=== PATIENT | female | born 1985 | race African-American/Black ===

== ENCOUNTER 2022-01-28 10:46 | Emergency (ER) | payer OTHER ==
[2022-01-28 11:42] LABS: BILIRUBIN,URINE NEGATIVE (NEGATIVE); GLUCOSE, URINE (UA) NEGATIVE (NEGATIVE); KETONES,URINE (UA) NEGATIVE (NEGATIVE); LEUKOCYTE ESTERASE, URINE NEGATIVE (NEGATIVE); NITRITE,URINE NEGATIVE (NEGATIVE); OCCULT BLOOD,URINE TRACE-INTA (NEGATIVE); PROTEIN,URINE NEGATIVE (NEGATIVE); UROBILINOGEN,URINE 0.2 (NORMAL) E.U./dL (NORMAL)
[2022-01-28 11:44] LABS: CLARITY,URINE CLEAR (CLEAR); HCG UR QUAL NEGATIVE
[2022-01-28 11:49] LABS: BASOPHILS % (AUTO) 0.7 %; EOSINOPHILS # (AUTO) 0.1 10^3/uL (0.0-0.7); EOSINOPHILS % (AUTO) 2.3 %; HCT - HEMATOCRIT 41.5 % (37.0-47.0); LYMPHOCYTES # (AUTO) 1.9 10^3/uL (1.5-3.5); LYMPHOCYTES % (AUTO) 33.2 %; MEAN CORPUSCULAR HEMOGLOBIN 28.4 pg (27.0-31.0); MEAN CORPUSCULAR HGB CONC 31.3 g/dL (32.0-36.0); MEAN CORPUSCULAR VOLUME 90.8 fL (81.0-99.0); MEAN PLATELET VOLUME 10.1 fL (7.9-10.8); MONOCYTES # (AUTO) 0.4 10^3/uL (0.0-1.0); NEUTROPHILS # (AUTO) 3.2 10^3/uL (1.5-6.6); NEUTROPHILS % (AUTO) 56.5 %; PLT - PLATELET COUNT 273 10^3/uL (130-450); RED BLOOD COUNT 4.57 10^6/uL (4.20-5.40); RED CELL DISTRIBUTION WIDTH 12.7 % (12.0-15.0); WHITE BLOOD COUNT 5.7 x10^3/uL (4.8-10.8)
[2022-01-28] MEDS ORDERED: ONDANSETRON ODT 4 MG TABLET TL STA (12:00)
[2022-01-28] MEDS ORDERED: KETOROLAC 60 MG/2 ML VIAL IM STA (12:00)
[2022-01-28] MEDS ORDERED: oxyCODONE 5 MG TABLET PO STA (12:00)
[2022-01-28 12:02] LABS: ALBUMIN 4.2 g/dL (3.2-5.5); BILIRUBIN,TOTAL 0.4 mg/dL (0.2-1.0); CREATININE 0.7 mg/dL (0.4-1.0); TOTAL PROTEIN 8.4 g/dL (6.7-8.2)
[2022-01-28 12:12] LABS: CALCIUM 9.6 mg/dL (8.5-10.3); POTASSIUM 3.3 mmol/L (3.5-5.0)
--- NOTE | 2022-01-28 12:21 | ED Physician Documentation ---
History of Present Illness - Stated complaint Stated Complaint: ABD PX - Chief complaint Chief Complaint: Abd Pain - History obtained from History obtained from: Patient - History of Present Illness Pain level max: 8 Pain level now: 8 - Additonal information Additional information: Patient is a 36-year-old female who presents to the emergency department with lower abdominal pain, left greater than right. She states that she has a history of ovarian cyst. She states she went to the [place] [facility] today and was sent here for further evaluation. She has not taken anything for pain. The pain has become worse today. Has been ongoing for the past few weeks. No vomiting, diarrhea, vaginal bleeding or discharge. No fevers. No chills. Denies any possibility of . Review of Systems Constitutional: denies: Fever, Chills Cardiac: denies: Chest pain / pressure Respiratory: denies: Dyspnea, Cough GI: reports: Nausea. denies: Diarrhea, Bloody / black stool : denies: Dysuria, Frequency, Hesitancy, Now EGA Skin: denies: Rash Musculoskeletal: denies: Neck pain, Back pain Neurologic: denies: Headache PD PAST MEDICAL HISTORY - Past Medical History Past Medical History: Yes HOME HEALTH AID: Ovarian cysts - Present Medications Home Medications: Ambulatory Orders Medication Instructions Recorded Confirmed Ibuprofen [Motrin] 800 mg PO Q8H PRN #30 tablet 01/28/22 Ondansetron Odt [Zofran] 4 mg TL Q6H PRN #10 tablet 01/28/22 Oxycodone HCl/Acetaminophen 1 - 2 each PO Q6H PRN #14 tablet 01/28/22 [Percocet 5-325 mg Tablet] - Allergies Allergies/Adverse Reactions: Allergies Allergy/AdvReac Type Severity Reaction Status Date / Time No Known Drug Allergies Allergy Verified 01/28/22 11:04 - Living Situation Living Arrangement: reports: At home - Social History Does the pt have substance abuse?: No PD ED PE NORMAL - Vitals Vital signs reviewed: Yes - General General: Alert and oriented X 3, No acute distress, Well developed/nourished - HEENT HEENT: PERRL, Moist mucous membranes - Neck Neck: Supple, no meningeal sign - Cardiac Cardiac: RRR, Strong equal pulses - Respiratory Respiratory: No respiratory distress, Clear bilaterally - Abdomen Abdomen: Normal bowel sounds, Soft, Non distended, Other (Tender palpation left lower quadrant/left pelvic. No peritoneal signs.) - Back Back: No CVA TTP - Derm Derm: Warm and dry - Extremities Extremities: No edema - Neuro Neuro: Alert and oriented X 3 - Psych Psych: Normal mood, Normal affect Results - Vitals Vitals: Vital Signs - 24 hr 01/28/22 01/28/22 11:01 13:04 Temperature 36.4 C L 36.8 C Heart Rate 63 70 Respiratory 16 16 Rate Blood Pressure 135/94 H 140/88 H O2 Saturation 99 98 Oxygen O2 Source Room air - Labs Labs: Laboratory Tests 01/28/22 01/28/22 01/28/22 11:30 11:44 11:44 WBC 5.7 RBC 4.57 Hgb 13.0 Hct 41.5 MCV 90.8 MCH 28.4 MCHC 31.3 L RDW 12.7 Plt Count 273 MPV 10.1 Neut # (Auto) 3.2 Lymph # (Auto) 1.9 [place] # (Auto) 0.4 Eos # (Auto) 0.1 Baso # (Auto) 0.0 Absolute Nucleated RBC 0.00 Nucleated RBC % 0.0 Sodium 134 L Potassium 3.3 L Chloride 100 L Carbon Dioxide 24 Anion Gap 10.0 BUN 12 Creatinine 0.7 Estimated GFR (MDRD) 115 Glucose 79 Calcium 9.6 Total Bilirubin 0.4 AST 26 ALT 22 Alkaline Phosphatase 65 Total Protein 8.4 H Albumin 4.2 Globulin 4.2 Albumin/Globulin Ratio 1.0 Lipase 33 Urine Color YELLOW Urine Clarity CLEAR Urine pH 6.0 Ur Specific [place] 1.025 Urine Protein NEGATIVE Urine Glucose (UA) NEGATIVE Urine Ketones NEGATIVE Urine Occult Blood TRACE-INTA Urine Nitrite NEGATIVE Urine Bilirubin NEGATIVE Urine Urobilinogen 0.2 (NORMAL) Ur Leukocyte Esterase NEGATIVE Ur Microscopic Review NOT INDICATED Urine Culture Comments NOT INDICATED Urine HCG, Qual NEGATIVE - Rads (name of study) OB US Radiology: Final report received, EMP read contemporaneously, See rad report PD MEDICAL DECISION MAKING - ED course Complexity details: reviewed results, re-evaluated patient, considered differential, d/w patient ED course: 36-year-old female with a left ovarian cyst. Has a complex focus with calcification in septations of the left ovary. Unclear if this represents a dermoid cyst? Her pain is well controlled here. We will have her follow-up with her doctor for further care. Abdomen is soft, nontender nondistended on serial exam. No significant lab abnormalities. No evidence of torsion. Patie nt counseled regarding signs and symptoms for which I believe and urgent re- evaluation would be necessary. Patient with good understanding of and agreement to plan and is comfortable going home at this time This document was made in part using voice recognition software. While efforts are made to proofread this document, sound alike and grammatical errors may occur. IMPRESSION: Complex focus with calcification septations in the left ovary. This could represent inferior moiety and no prior exams are available for comparison. Recommend 3 month interval ultrasound follow-up. Departure - Departure Disposition: Home, Self Care Clinical Impression: Ovarian cyst Qualifiers: Laterality: left Qualified Code(s): N83.202 - Unspecified ovarian cyst, left side Condition: Good Instructions: ED Cyst Ovarian Follow-Up: RICHARD GONZALES DO [Primary Care Provider] - Within 1 week Prescriptions: Ibuprofen [Motrin] 800 mg PO Q8H PRN #30 tablet PRN Reason: PAIN &/OR FEVER Oxycodone HCl/Acetaminophen [Percocet 5-325 mg Tablet] 1 - 2 each PO Q6H PRN #14 tablet PRN Reason: pain Ondansetron Odt [Zofran] 4 mg TL Q6H PRN #10 tablet PRN Reason: Nausea / Vomiting Comments: Please follow-up with your doctor for further care. Return if you worsen. It is recommend that he have a repeat ultrasound in 3 months. Please follow-up with your doctor within the next week. Your prescriptions were sent to [facility] FINDINGS: No pathologic free abdominal or pelvic fluid. Uterus: Uterus is normal in size at 8.5 x 4.1 x 4.0 cm. The endometrium measures 5.9 mm in combined thickness. Uterus is heterogeneous. In the mid anterior subserosal region there is a 1.0 x 0.9 x 0.8 cm focus of heterogeneous echogenicity. Similar focus in the right anterior intramural location is present measuring 1.2 x 1.0 x 1.2 cm. Ovaries: Right ovary measures 3.2 x 1.5 x 2.3 cm, volume 5.7 cc. Left ovary measures 2.8 x 1.9 x 3.3 cm, volume 9.1 cc. There is a mass within the left ovary demonstrating areas of apparent calcification measuring 1.6 x 1.1 x 1.7 cm. Normal appearing arterial and venous waveforms are confirmed to each ovary.] Other: Minimal free fluid is noted within the region of the left adnexa. IMPRESSION: Complex focus with calcification septations in the left ovary. This could represent inferior moiety and no prior exams are available for comparison. Recommend 3 month interval ultrasound follow-up. Discharge Date/Time: 01/28/22 13:56
[2022-01-28 13:30] VITALS: BP 140/88
--- NOTE | 2022-01-28 13:33 | Ultrasound Report ---
PROCEDURE: Pelvic w/Transvag+Doppler Comp INDICATIONS: pelvic pain, L TECHNIQUE: Real-time scanning was performed of the pelvic organs, with image documentation. Additional endovagi nal scanning was necessary due to incomplete visualization of the adnexal and endometrial structures by transabdominal scanning. Doppler interrogation was performed of the ovaries bilaterally. COMPARISON: None. FINDINGS: No pathologic free abdominal or pelvic fluid. Uterus: Uterus is normal in size at 8.5 x 4.1 x 4.0 cm. The endometrium measures 5.9 mm in combined thickness. Uterus is heterogeneous. In the mid anterior subserosal region there is a 1.0 x 0.9 x 0.8 cm focus of heterogeneous echogenicity. Similar focus in the right anterior intramural location is p resent measuring 1.2 x 1.0 x 1.2 cm. Ovaries: Right ovary measures 3.2 x 1.5 x 2.3 cm, volume 5.7 cc. Left ovary measures 2.8 x 1.9 x 3.3 cm, volume 9.1 cc. There is a mass within the left ovary demonstrating areas of apparent calcificati on measuring 1.6 x 1.1 x 1.7 cm. Normal appearing arterial and venous waveforms are confirmed to each ovary.] Other: Minimal free fluid is noted within the region of the left adnexa. IMPRESSION: Complex focus with calcification septations in the left ovary. This could represent infe rior moiety and no prior exams are available for comparison. Recommend 3 month interval ultrasound fo llow-up. Reviewed by: Alicia Artis MD on 01/28/2022 1:32 PM PDT Approved by: Alicia Artis MD on 01/28/2022 1:32 PM PDT Station ID: [id number]
== END 2022-01-28 13:56 | disposition home or self-care (01) ==
LOC: ED 10:46
DX: N83.202 Unspecified ovarian cyst, left side (principal)
CPT/HCPCS: 36415; 76830; 76856; 80053; 81003; 81025; 83690; 85025; 93975; 96372; 99284; A9270; Q0162; 81001; 87086

== ENCOUNTER 2023-04-01 06:37 | Emergency (ER) | payer OTHER ==
[2023-04-01 07:04] VITALS: O2SAT 100
--- NOTE | 2023-04-01 07:37 | ED Physician Documentation ---
PD HPI URI - Stated complaint Stated Complaint: COUGH/SOA - Chief complaint Chief Complaint: General - History obtained from History obtained from: Patient - History of Present Illness Timing - onset: How many days ago (3-4) Timing duration: Days (3-4) Timing details: Gradual onset, Still present (initially milder cough and malaise, but has gotten significantly worse with increased cough, body aches, headache, nausea since yesterday. Increased cough with barking/hoarse component.) Associated symptoms: Fever, Chills, Sore throat, Productive cough, Hemoptysis (traces of red) Contributing factors: Travel (went to [place] to visit family for holiday. No one sick there. Flew back several days ago. Had had some cough prior but notable fevers/aches/cough for the past 2-3 days.), COPD / asthma Review of Systems Constitutional: reports: Fever, Chills, Myalgias, Fatigue Ears: denies: Ear pain Nose: reports: Congestion Throat: reports: Sore throat Cardiac: denies: Chest pain / pressure, Palpitations, Pedal edema Respiratory: reports: Cough, Hemoptysis (wisps of blood with cough) GI: reports: Nausea. 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 - Present Medications Home Medications: Ambulatory Orders Medication Instructions Recorded Confirmed Albuterol Sulf [Ventolin Hfa 2 - 3 puffs INH QID #1 each 04/01/23 Inhaler] Amoxicillin 500 mg PO TID #15 cap 04/01/23 HYDROcod/ACETAM 5/325 [[place] 5/325] 1 ea PO Q6H PRN #12 tablet 04/01/23 Ondansetron Odt [Zofran] 4 mg TL Q6H PRN #10 tablet 04/01/23 dexAMETHasone [Decadron] 4 mg PO DAILY #5 tablet 04/01/23 - Allergies Allergies/Adverse Reactions: Allergies Allergy/AdvReac Type Severity Reaction Status Date / Time No Known Drug Allergies Allergy Verified 04/01/23 07:04 - Social History Does the pt smoke?: No Smoking Status: Never smoker Does the pt have substance abuse?: No PD ED PE NORMAL - Vitals Vital signs reviewed: Yes - General General: Alert and oriented X 3, Well developed/nourished, Other (appears uncomfortable lying in bed. Intermittent hoarse/barking type cough with spasmodic pattern. ) - HEENT HEENT: Moist mucous membranes, Pharynx benign - Neck Neck: Supple, no meningeal sign, No adenopathy - Cardiac Cardiac: No murmur. No: RRR (tachycardic but regular with some improvement in rate while here. ) - Respiratory Respiratory: No: Clear bilaterally (wheezing componenent on exxhalation and with coughing. Haorse component as well. ) - Abdomen Abdomen: Soft, Non tender Results - Vitals Vitals: Vital Signs - 24 hr 04/01/23 04/01/23 04/01/23 07:01 07:33 08:10 Temperature 37.7 C 38.6 C H Heart Rate 120 H 110 H Respiratory 24 22 Rate Blood Pressure 147/108 H O2 Saturation 100 04/01/23 04/01/23 04/01/23 08:37 09:04 09:23 Temperature 100.2 C H 37.9 C Heart Rate 121 H 110 H Respiratory 18 Rate Blood Pressure 136/92 H O2 Saturation 100 Oxygen O2 Source Room air - Labs Labs: Laboratory Tests 04/01/23 07:21 Nasal Adenovirus (PCR) NOT DETECTED Nasal B. parapertussis DNA (PCR) NOT DETECTED Nasal Coronavir 229E PCR NOT DETECTED Nasal Coronavir HKU1 PCR NOT DETECTED Nasal Coronavir NL63 PCR NOT DETECTED Nasal Coronavir OC43 PCR NOT DETECTED Nasal Enterovir/Rhinovir PCR NOT DETECTED Nasal Influ A H1 2009 PCR DETECTED A Nasal Influenza B PCR NOT DETECTED Nasal Parainfluen 1 PCR NOT DETECTED Nasal Parainfluen 2 PCR NOT DETECTED Nasal Parainfluen 3 PCR NOT DETECTED Nasal Parainfluen 4 PCR NOT DETECTED Nasal RSV (PCR) NOT DETECTED Nasal B.pertussis DNA PCR NOT DETECTED Nasal C.pneumoniae (PCR) NOT DETECTED Jered Human Metapneumo PCR NOT DETECTED Nasal M.pneumoniae (PCR) NOT DETECTED Nasal SARS-CoV-2 (PCR) NOT DETECTED - Rads (name of study) chest xray Relevant Findings:: Prelim report reviewed, EMP independent interpretation of test (rigth perihilar infiltrate. Consider viral possible. ) PD Medical Decision Making - ED course Complexity details: reviewed results (CXR with some small infiltrates. Had had some URI symptoms prior but with flu like symptoms added now. Consider developing focal pneumonia with also Influenza new. ), considered differential (flu like symptoms for couple days with worse cough and symptoms. Guerin sbarking component to her cough here. ), d/w patient Reviewed Lab Results: viral testing positive for Influenza A. Departure - Departure Disposition: 01 Home, Self Care Clinical Impression: Pulmonary infiltrates on CXR, Influenza A virus subtype H1 2009 pandemic strain present Condition: Stable Record reviewed to determine appropriate education?: Yes Instructions: ED Flu Follow-Up: RICHARD GONZALES DO [Primary Care Provider] - Prescriptions: Amoxicillin 500 mg PO TID #15 cap dexAMETHasone [Decadron] 4 mg PO DAILY #5 tablet HYDROcod/ACETAM 5/325 [[place] 5/325] 1 ea PO Q6H PRN #12 tablet PRN Reason: Pain Albuterol Sulf [Ventolin Hfa Inhaler] 2 - 3 puffs INH QID #1 each Ondansetron Odt [Zofran] 4 mg TL Q6H PRN #10 tablet PRN Reason: Nausea / Vomiting Comments: Your viral panel testing is positive for influenza A. The flu can account for your symptoms with the fevers and body aches and headache as well as cough. It would tend to be about a weeks worth of symptom duration. He can then have some degree of fatigue and coughing for a few weeks after as well. Off duty for the next several days while you are ill. Stay well-hydrated as best you can. Food as tolerated. Will try to help the symptoms of it with albuterol inhaler 2 to 3 puffs 4 times daily to help with breathing wheezing and cough. Decadron steroid anti- inflammatory to help with bronchial inflammation so less coughing and breathing easier. This can help with the body aches as well. Tylenol 500 to 650 mg every 4-6 hours if needed for fevers or pains. I also prescribed hydrocodone/acetaminophen to help with worse body aches and can also be a stronger cough suppressant. Take it with food. Your chest x-ray did show some small patchiness suggesting pneumonia. This likely is still of the influenza pneumonia down in the lungs but there would be concern for potential bacterial component as well so amoxicillin antibiotic 3 times daily for 5 days. I sent your prescriptions to your preferred pharmacy. Recheck if worsening symptoms over the next couple of days and in particular worse pains, headache, repetitive vomiting or worse trouble breathing. I am prescribing a short course of narcotic pain medication for you. These are potentially dangerous and addictive medications that should be used carefully. These medications may constipate you. Take an yctz-[id number] stool softener such as docusate twice daily with plenty of water while taking these medications. If you go 24 hours without a bowel movement, take [id number] MiraLAX, per package instructions. Do not drink or drive while taking these medications. If you received narcotic or sedating medications while in the emergency department do not drive for 24 hours. Store this medication in a safe, secure place and out of reach of children. It is a violation of federal law to give or sell this medication to another person or to use in a manner other than prescribed. The ED will not refill narcotic prescriptions, including prescriptions lost or stolen. You can dispose of unwanted medications at the [facility]'s office or at several pharmacies such as [facility]. Forms: PCP List, Activity restrictions Discharge Date/Time: 04/01/23 09:23
[2023-04-01] MEDS ORDERED: ACETAMINOPHEN 500 MG TABLET PO STA (07:38)
[2023-04-01] MEDS ORDERED: ONDANSETRON ODT 4 MG TABLET TL STA (07:54)
[2023-04-01] MEDS ORDERED: dexAMETHasone 4 MG TABLET PO STA ×2 (07:54→09:12)
[2023-04-01] MEDS ORDERED: ALBUTEROL 1 PUFF INH STA (07:55)
--- NOTE | 2023-04-01 08:01 | XRAY Report ---
PROCEDURE: Chest 1V INDICATIONS: cough/sob TECHNIQUE: One view of the chest was acquired. COMPARISON: None. FINDINGS: Surgical changes and devices: None. Lungs and pleura: No pleural effusions or pneumothorax. Question mild right perihilar interstitial o pacities suggesting possible viral pneumonitis. Mediastinum: Mediastinal contours appear normal. Heart size is normal. Bones and chest wall: No suspicious bony lesions. Overlying soft tissues appear unremarkable. IMPRESSION: Possible viral pneumonitis, right perihilar region. Findings are concordant with preliminary interpretation provided by [facility]. Reviewed by: Edil Fox MD on 04/01/2023 8:00 AM PST Approved by: Edil Fox MD on 04/01/2023 8:00 AM PST Station ID: [id number]
[2023-04-01 08:19] LABS: B. PARAPERTUSSIS- RESP PCR PAN NOT DETECTED; B. PERTUSSIS- RESP PCR PANEL NOT DETECTED; C. PNEUMONIAE- RESP PCR PANEL NOT DETECTED; CORONAVIRUS 229E-RESP PCR NOT DETECTED; CORONAVIRUS HKU1-RESP PCR NOT DETECTED; CORONAVIRUS NL63-RESP PCR NOT DETECTED; CORONAVIRUS OC43-RESP PCR NOT DETECTED; HUMAN METAPNEUMOVIRUS NOT DETECTED; INFLUENZA A H1 2009- RESP PCR DETECTED; INFLUENZA B - RESP PCR PANEL NOT DETECTED; M. PNEUMONIAE- RESP PCR PANEL NOT DETECTED; PARAINFLUENZA VIRUS 1 NOT DETECTED; PARAINFLUENZA VIRUS 2 NOT DETECTED; PARAINFLUENZA VIRUS 3 NOT DETECTED; PARAINFLUENZA VIRUS 4 NOT DETECTED; RHINOVIRUS/ENTEROVIRUS NOT DETECTED; RSV- RESP PCR PANEL NOT DETECTED; SARS-CoV-2 -RESP PCR PANEL NOT DETECTED
[2023-04-01 09:13] VITALS: BP 136/92
== END 2023-04-01 09:23 | disposition home or self-care (01) ==
LOC: ED 06:37
DX: J10.1 Influenza due to other identified influenza virus with other respiratory manifestations (principal); R91.8 Other nonspecific abnormal finding of lung field; Z11.52 Encounter for screening for COVID-19
CPT/HCPCS: 71045; 87633; 94640; 99284; A9270; J8540; Q0162

== ENCOUNTER 2023-04-02 08:34 | Emergency (ER) | payer OTHER ==
[2023-04-02 09:02] LABS: BILIRUBIN,URINE NEGATIVE (NEGATIVE); GLUCOSE, URINE (UA) NEGATIVE (NEGATIVE); KETONES,URINE (UA) NEGATIVE (NEGATIVE); LEUKOCYTE ESTERASE, URINE NEGATIVE (NEGATIVE); NITRITE,URINE NEGATIVE (NEGATIVE); OCCULT BLOOD,URINE TRACE-INTA (NEGATIVE); PROTEIN,URINE 30 mg/dL (NEGATIVE); UROBILINOGEN,URINE 1 (NORMAL) E.U./dL (NORMAL)
[2023-04-02 09:03] LABS: CLARITY,URINE SL. CLOUDY (CLEAR); HCG UR QUAL NEGATIVE
--- NOTE | 2023-04-02 09:09 | ED Physician Documentation ---
History of Present Illness - Stated complaint Stated Complaint: STOMACH CRAMPS/HEAD PX - Chief complaint Chief Complaint: Abd Pain - History obtained from History obtained from: Patient - History of Present Illness Timing: Last night - Additonal information Additional information: Krupa Mcclellan is a 37-year-old female who is seen in emergency department yesterday and diagnosed with influenza A she did have some slight right perihilar findings on her chest x-ray and she was placed on some amoxicillin. She has since developed some pain in the left lower quadrant of her abdomen which had her curled in the position for 2 hours last night. She has persistence of tenderness in the left lower quadrant and she has had diverticulitis previously. She states that this morning she tried to have a bowel movement with only minimal results. She is here for reevaluation. She has had similar pains in her left lower quadrant after starting amoxicillin when she was diagnosed with diverticulitis previously Review of Systems Constitutional: denies: Fever Nose: reports: Congestion Cardiac: denies: Chest pain / pressure Respiratory: reports: Cough. 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 : None Psych: Depression, Anxiety Musculoskeletal: None Derm: None - Past Surgical History Past Surgical History: Yes /UNIT OPERATOR: Breast reduction - Present Medications Home Medications: Ambulatory Orders Medication Instructions Recorded Confirmed Albuterol Sulf [Ventolin Hfa 2 - 3 puffs INH QID #1 each 04/01/23 04/02/23 Inhaler] Amoxicillin 500 mg PO TID #15 cap 04/01/23 04/02/23 HYDROcod/ACETAM 5/325 [[place] 5/325] 1 ea PO Q6H PRN #12 tablet 04/01/23 04/02/23 Ondansetron Odt [Zofran] 4 mg TL Q6H PRN #10 tablet 04/01/23 04/02/23 dexAMETHasone [Decadron] 4 mg PO DAILY #5 tablet 04/01/23 04/02/23 levoFLOXacin [Levaquin] 500 mg PO DAILY #7 tablet 04/02/23 - Allergies Allergies/Adverse Reactions: Allergies Allergy/AdvReac Type Severity Reaction Status Date / Time hydrocodone AdvReac Headache Verified 04/02/23 09:36 - Social History Does the pt smoke?: No Smoking Status: Current some day smoker Does the pt drink ETOH?: Yes Does the pt have substance abuse?: No - Immunizations Immunizations are current?: Yes PD ED PE NORMAL - Vitals Vital signs reviewed: Yes (hypertensive ) - General General: Alert and oriented X 3, No acute distress, Well developed/nourished - HEENT HEENT: Atraumatic, PERRL, EOMI - Neck Neck: Supple, no meningeal sign, No bony TTP - Cardiac Cardiac: RRR, No murmur - Respiratory Respiratory: No respiratory distress, Clear bilaterally - Abdomen Abdomen: Normal bowel sounds, Soft, Non distended, No organomegaly, Other (LLQ tenderness to palpation no referred tenderness) - Back Back: No CVA TTP, No spinal TTP - Derm Derm: Normal color, Warm and dry, No rash - Extremities Extremities: No deformity, No edema - Neuro Neuro: Alert and oriented X 3, head sawyer automatic 2-12 intact, No motor deficit, No sensory deficit, Normal speech Eye Opening: Spontaneous Motor: Obeys Commands Verbal: Oriented GCS Score: 15 - Psych Psych: Normal mood, Normal affect Results - Vitals Vitals: Vital Signs - 24 hr 04/02/23 04/02/23 04/02/23 08:43 09:36 11:30 Temperature 36.9 C 36.8 C Heart Rate 82 68 78 Respiratory 18 16 12 Rate Blood Pressure 131/85 H 132/90 H 136/88 H O2 Saturation 99 99 99 Oxygen O2 Source Room air - Labs Labs: Laboratory Tests 04/02/23 04/02/23 04/02/23 08:55 08:55 09:20 WBC 14.7 H RBC 4.20 Hgb 12.1 Hct 37.1 MCV 88.3 MCH 28.8 MCHC 32.6 RDW 13.0 Plt Count 268 MPV 10.6 Neut # (Auto) 12.0 H Lymph # (Auto) 1.4 L [place] # (Auto) 1.3 H Eos # (Auto) 0.0 Baso # (Auto) 0.0 Absolute Nucleated RBC 0.00 Nucleated RBC % 0.0 Sodium Potassium Chloride Carbon Dioxide Anion Gap BUN Creatinine Estimated GFR (MDRD) Glucose Calcium Total Bilirubin AST ALT Alkaline Phosphatase Total Protein Albumin Globulin Albumin/Globulin Ratio Lipase Urine Color YELLOW Urine Clarity SL. CLOUDY Urine pH 6.0 Ur Specific [place] 1.025 Urine Protein 30 H Urine Glucose (UA) NEGATIVE Urine Ketones NEGATIVE Urine Occult Blood TRACE-INTA Urine Nitrite NEGATIVE Urine Bilirubin NEGATIVE Urine Urobilinogen 1 (NORMAL) Ur Leukocyte Esterase NEGATIVE Urine RBC 0-5 Urine WBC 4-5 Ur Squamous Epith Cells MOD Squamous H Urine Bacteria Few Urine Casts 0-2 Hyaline Casts Urine Mucus Moderate Strands Ur Microscopic Review INDICATED Urine Culture Comments NOT INDICATED Urine HCG, Qual NEGATIVE 04/02/23 09:20 WBC RBC Hgb Hct MCV MCH MCHC RDW Plt Count MPV Neut # (Auto) Lymph # (Auto) [place] # (Auto) Eos # (Auto) Baso # (Auto) Absolute Nucleated RBC Nucleated RBC % Sodium 136 Potassium 4.0 Chloride 104 Carbon Dioxide 27 Anion Gap 5.0 L BUN 11 Creatinine 0.7 Estimated GFR (MDRD) 114 Glucose 115 H Calcium 9.0 Total Bilirubin 0.3 AST 20 ALT 14 Alkaline Phosphatase 60 Total Protein 7.7 Albumin 3.8 Globulin 3.9 Albumin/Globulin Ratio 1.0 Lipase < 10 L Urine Color Urine Clarity Urine pH Ur Specific [place] Urine Protein Urine Glucose (UA) Urine Ketones Urine Occult Blood Urine Nitrite Urine Bilirubin Urine Urobilinogen Ur Leukocyte Esterase Urine RBC Urine WBC Ur Squamous Epith Cells Urine Bacteria Urine Casts Urine Mucus Ur Microscopic Review Urine Culture Comments Urine HCG, Qual PD Medical Decision Making - ED course ED course: Developed migraine while here she has had migraine cocktail previously we administered a cocktail along with some Rocephin. She does have evidence of infiltrate in the right base which appears increased from her chest x-ray done yesterday.Her secondary complaint of increased left lower quadrant abdominal pain associated with taking amoxicillin was investigated because she had left lower quadrant abdominal tenderness prior history of diverticulitis and worsening of symptoms with amoxicillin. Today this did again show a small area of diverticulitis. Patient recalls being on Levaquin previously for this. Today we will treat her again with Levaquin. She did receive a dose of Rocephin while here in the emergency department. Departure - Departure Disposition: 01 Home, Self Care Clinical Impression: Diverticulitis, Influenza A virus subtype H1 2009 pandemic strain present Pneumonia Qualifiers: Pneumonia type: due to unspecified organism Laterality: right Lung location: lower lobe of lung Qualified Code(s): J18.9 - Pneumonia, unspecified organism Condition: Stable Instructions: ED Pneumonia Adult, ED Diverticulitis, ED Flu Follow-Up: RICHARD GONZALES DO [Primary Care Provider] - Prescriptions: levoFLOXacin [Levaquin] 500 mg PO DAILY #7 tablet Comments: Krupa today it looks like you have an increase in the infiltrate seen in your chest x-ray yesterday and in addition on the CT scan of your abdomen and pelvis it does look like there is a section of your colon with an associated diverticulitis. We are prescribing Levaquin as an antibiotic for both of these processes. This has been E scribed to the [facility] in [place].
[2023-04-02 09:11] LABS: BACTERIA,URINE Few /HPF (None Seen); MUCUS,URINE Moderate Strands; RBC,URINE 0-5 /HPF (0-5); SQUAMOUS EPITHELIAL CELL,UR MOD Squamous (<= Few)
[2023-04-02 09:12] LABS: CASTS, URINE 0-2 Hyaline Casts /LPF
[2023-04-02 09:25] LABS: BASOPHILS % (AUTO) 0.1 %; HCT - HEMATOCRIT 37.1 % (37.0-47.0); HGB - HEMOGLOBIN 12.1 g/dL (12.0-16.0); LYMPHOCYTES # (AUTO) 1.4 10^3/uL (1.5-3.5); LYMPHOCYTES % (AUTO) 9.5 %; MEAN CORPUSCULAR HEMOGLOBIN 28.8 pg (27.0-31.0); MEAN CORPUSCULAR HGB CONC 32.6 g/dL (32.0-36.0); MEAN CORPUSCULAR VOLUME 88.3 fL (81.0-99.0); MEAN PLATELET VOLUME 10.6 fL (7.9-10.8); MONOCYTES # (AUTO) 1.3 10^3/uL (0.0-1.0); MONOCYTES % (AUTO) 8.5 %; NEUTROPHILS % (AUTO) 81.6 %; PLT - PLATELET COUNT 268 10^3/uL (130-450); WHITE BLOOD COUNT 14.7 x10^3/uL (4.8-10.8)
[2023-04-02 09:45] LABS: ALBUMIN 3.8 g/dL (3.2-5.5); ALKALINE PHOSPHATASE 60 IU/L (42-121); ALT ALANINE AMINOTRANSFERASE 14 IU/L (10-60); AST ASPARTATE AMINOTRANSFERASE 20 IU/L (10-42); BILIRUBIN,TOTAL 0.3 mg/dL (0.2-1.0); BUN - BLOOD UREA NITROGEN 11 mg/dL (6-20); CARBON DIOXIDE - CO2 27 mmol/L (21-32); CHLORIDE 104 mmol/L (101-111); CREATININE 0.7 mg/dL (0.6-1.3); GFR - MDRD 114 (>89); GLUCOSE 115 mg/dL (74-104); SODIUM 136 mmol/L (135-145); TOTAL PROTEIN 7.7 g/dL (6.4-8.9)
[2023-04-02 09:46] LABS: LIPASE < 10 U/L (11-82)
--- NOTE | 2023-04-02 09:48 | XRAY Report ---
PROCEDURE: Chest 1V INDICATIONS: cough TECHNIQUE: One view of the chest was acquired. COMPARISON: 04/01/2023 FINDINGS: Surgical changes and devices: None. Lungs and pleura: Low lung volumes. Mild diffuse interstitial thickening. No pleural effusions. Mediastinum: Normal heart size Bones and chest wall: No acute abnormality IMPRESSION: Single view portable chest radiograph. Compared to 04/01/2023, increased interstitial prominence cons istent with atypical infection versus edema. Consider future imaging surveillance to assess for resol ution. Reviewed by: Tanner Tinoco MD on 04/02/2023 9:46 AM PST Approved by: Tanner Tinoco MD on 04/02/2023 9:46 AM PST Station ID: [id number]
[2023-04-02] MEDS ORDERED: PROCHLORPERAZINE 10 MG/2 ML VIAL IVP STA (11:39)
[2023-04-02] MEDS ORDERED: SODIUM CHLORIDE 0.9% 1,000 ML IV STA (11:39)
[2023-04-02] MEDS ORDERED: cefTRIAXone 1 GM in SODIUM CHLORIDE 0.9% MINIBAG 100 ML IV STA (11:39)
[2023-04-02] MEDS ORDERED: KETOROLAC 30 MG/ML VIAL IVP STA (11:39)
[2023-04-02] MEDS ORDERED: DEXAMETHASONE 10 MG/ML VIAL IVP STA (11:40)
[2023-04-02] MEDS ORDERED: diphenhydrAMINE INJ 50 MG/ML VIAL IVP STA (11:40)
[2023-04-02] MEDS ORDERED: iohexoL-300 100 ML VIAL IVP ONE (11:52)
--- NOTE | 2023-04-02 12:45 | CT Report ---
PROCEDURE: ABDOMEN/PELVIS W INDICATIONS: LLQ abdominal tenderness CONTRAST: Omni 300 100ml TECHNIQUE: After the administration of intravenous contrast, a CT scan of the abdomen and pelvis was performed. Images were recorded and evaluated at appropriate window settings. Reformats: coronal and sagittal. F or radiation dose reduction, the following was used: automated exposure control, adjustment of mA and /or kV according to patient size. COMPARISON: None. FINDINGS: Image quality: Diagnostic Lower chest: No dense airspace disease at the lung bases. No pleural effusions. Small hiatal hernia. Liver: Possible hepatic steatosis. Gallbladder and biliary system: Unremarkable, nondilated Pancreas: No ductal dilation Spleen: Nonenlarged Adrenals: No nodule Kidneys: No hydronephrosis. No suspicious solid mass. Vessels and lymph nodes: The main portal vein is patent. No abdominal aortic aneurysm. No pathologic lymph nodes by size criteria. Bowel and peritoneum: No evidence of small bowel obstruction. There is a small hiatal hernia. No drai nable abscess or pathologic ascites. A small amount pelvic free fluid may be physiologic. There is qu estionable mild focal fat stranding at the sigmoid colon. Colonic diverticulosis. A nondilated append ix is visualized. Body wall: Tiny fat-containing umbilical hernia. Pelvis: Bladder is unremarkable. Prominent adnexal structures and endometrium, not well evaluated on CT. The uterus is retroverted. Bones: No acute or suspicious osseous finding. IMPRESSION: Colonic diverticulosis. Possible mild fat stranding representing uncomplicated diverticulitis in the sigmoid colon. No abscess. Prominent adnexal structures and endometrium, possibly physiologic in this age group. Consider pelvic ultrasound to further evaluate the reproductive organs if clinically indicated. Other findings as above. Reviewed by: Tanner Tinoco MD on 04/02/2023 12:44 PM PST Approved by: Tanner Tinoco MD on 04/02/2023 12:44 PM PST Station ID: [id number]
[2023-04-02 13:49] VITALS: BP 138/82
[2023-04-02 14:06] VITALS: O2SAT 98
== END 2023-04-02 14:02 | disposition home or self-care (01) ==
LOC: ED 08:34
DX: K57.32 Diverticulitis of large intestine without perforation or abscess without bleeding (principal); J10.1 Influenza due to other identified influenza virus with other respiratory manifestations; J18.9 Pneumonia, unspecified organism; G43.909 Migraine, unspecified, not intractable, without status migrainosus; F17.200 Nicotine dependence, unspecified, uncomplicated
CPT/HCPCS: 36415; 71045; 74177; 80053; 81001; 81025; 83690; 85025; 96365; 96375; 99284; J1200; Q9967; 81003; 87086

== ENCOUNTER 2023-11-22 15:16 | Outpatient (CLI) | payer OTHER ==
--- NOTE | 2023-11-22 17:33 | MRI Report ---
PROCEDURE: Pelvis W/WO INDICATIONS: L OVARY LESION CONTRAST: IV contrast TECHNIQUE: Coronal ultra fast SE, sagittal T2 FSE, axial T1 FSE, axial and coronal nonbreath-hold T2 FSE. Axial dynamic ultra fast GE during administration of contrast. Post-contrast axial and coronal ultra fast GE / 2-D spoiled GE with fat saturation from the iliac crests to the symphysis. Optional diffusion weighted imaging and ADC may be performed. COMPARISON: 04/02/2023 FINDINGS: Image quality: Diagnostic Lower abdomen: No bowel obstruction or pathologic ascites. A small amount pelvic free fluid is presen t, which is usually physiologic in this age group Bladder: Unremarkable Reproductive organs: Junctional zone measures up to 13 mm. No significant subendometrial cystic crane es. The endometrium is within normal limits at 8 mm. Suspected intramural and subserosal fibroids are present, for example in the anterior uterus FIGO 5 f ibroid measures 1.2 cm. No significant foci of intrinsic T1 signal in the deep pelvis. However, in the left ovary, there is a complex lesion with intrinsic T1 signal and T2 shading and flu id levels measuring up to 3.9 x 3.3 cm. There are small loculations. A similar lesion is also seen at the right ovary measuring 2.3 cm. Portions of the intrinsic T1 signal likely extends into the fallop tamika tubes particularly on the left. Rectum: Colonic diverticula. No small bowel obstruction. The rectum is unremarkable Vessels and lymph nodes: No aneurysmal vessel or pathologic lymph nodes by size criteria. Pelvic wall: Partially visualized fat stranding in the left lower quadrant pelvic wall, correlate wit h any surgeries. Bones: No acute or suspicious osseous finding. IMPRESSION: Complex presumed endometriomas seen in bilateral ovaries, possibly associated with hematosalpinx part icularly on the left. There are layering fluid levels with hemorrhage and multiple loculations. Consider continued imaging follow-up and gynecologic consultation due to risk of malignant transforma tion. Fibroid uterus. Other findings above. Reviewed by: Tanner Tinoco MD on 11/22/2023 5:32 PM PDT Approved by: Tanner Tinoco MD on 11/22/2023 5:32 PM PDT Station ID: [id number]
== END 2023-11-22 15:17 | disposition home or self-care (01) ==
LOC: DI 15:16
DX: N80.123 Deep endometriosis of bilateral ovaries (principal); D25.9 Leiomyoma of uterus, unspecified

== ENCOUNTER 2023-12-19 22:21 | Emergency (ER) | payer OTHER ==
[2023-12-19 22:30] VITALS: BP 145/96; O2SAT 100
--- NOTE | 2023-12-19 22:36 | ED Physician Documentation ---
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 : None Psych: Depression, Anxiety Musculoskeletal: None Derm: None - Past Surgical History Past Surgical History: Yes /MEDICAL OFFICE ASSISTANT INSTRUCTOR: Breast reduction - Present Medications Home Medications: Ambulatory Orders Medication Instructions Recorded Confirmed Albuterol Sulf [Ventolin Hfa 2 - 3 puffs INH QID #1 each 04/01/23 04/02/23 Inhaler] Amoxicillin 500 mg PO TID #15 cap 04/01/23 04/02/23 HYDROcod/ACETAM 5/325 [[place] 5/325] 1 ea PO Q6H PRN #12 tablet 04/01/23 04/02/23 Ondansetron Odt [Zofran] 4 mg TL Q6H PRN #10 tablet 04/01/23 04/02/23 dexAMETHasone [Decadron] 4 mg PO DAILY #5 tablet 04/01/23 04/02/23 levoFLOXacin [Levaquin] 500 mg PO DAILY #7 tablet 04/02/23 Benzonatate [Tessalon] 100 mg PO TID PRN #20 cap 12/19/23 Doxycycline Hyclate 100 mg PO BID 7 Days #14 cap 12/19/23 dexAMETHasone [Decadron] 4 mg PO DAILY #5 tablet 12/19/23 - Allergies Allergies/Adverse Reactions: Allergies Allergy/AdvReac Type Severity Reaction Status Date / Time hydrocodone AdvReac Headache Verified 12/19/23 22:24 - Social History Does the pt smoke?: No Smoking Status: Never smoker Does the pt drink ETOH?: Yes Does the pt have substance abuse?: No - Immunizations Immunizations are current?: Yes PD ED PE NORMAL - Vitals Vital signs reviewed: Yes - General General: Alert and oriented X 3, No acute distress, Well developed/nourished - HEENT HEENT: Ears normal. No: Pharynx benign (mild enlargement of right tonsils without peritonsillar swelling. No exudate. ) - Neck Neck: Supple, no meningeal sign, Other (mild adenopathy right anteror neck. ) - Cardiac Cardiac: RRR, No murmur - Respiratory Respiratory: No respiratory distress, Clear bilaterally Results - Vitals Vitals: Vital Signs - 24 hr 12/19/23 22:25 Temperature 36.3 C L Heart Rate 88 Respiratory 12 Rate Blood Pressure 145/96 H O2 Saturation 100 Oxygen O2 Source Room air - Labs Labs: Laboratory Tests 12/19/23 12/19/23 22:30 22:30 Nasal Adenovirus (PCR) NOT DETECTED Nasal B. parapertussis DNA (PCR) NOT DETECTED Nasal Coronavir 229E PCR NOT DETECTED Nasal Coronavir HKU1 PCR NOT DETECTED Nasal Coronavir NL63 PCR NOT DETECTED Nasal Coronavir OC43 PCR NOT DETECTED Nasal Enterovir/Rhinovir PCR NOT DETECTED Nasal Influenza B PCR NOT DETECTED Nasal Influenza A PCR NOT DETECTED Nasal Parainfluen 1 PCR NOT DETECTED Nasal Parainfluen 2 PCR NOT DETECTED Nasal Parainfluen 3 PCR NOT DETECTED Nasal Parainfluen 4 PCR NOT DETECTED Nasal RSV (PCR) NOT DETECTED Nasal B.pertussis DNA PCR NOT DETECTED Nasal C.pneumoniae (PCR) NOT DETECTED Jered Human Metapneumo PCR NOT DETECTED Nasal M.pneumoniae (PCR) NOT DETECTED Nasal SARS-CoV-2 (PCR) NOT DETECTED Group A Strep Rapid Negative PD Medical Decision Making - ED course Complexity details: reviewed results (neg rapid strep with lower clinical suspicion. Viral panel not yet reported out. ), considered differential (Has had cough congestion and mild sore throat for over a week that has progressed to purulent sputum with some wisps of blood at times and significant right sore throat.), d/w patient ED course: ill and cough for a week, with worsening sputum, some blood traces in it, and developing right tonsillar pain with swallow. Condieer secondary bacterial process at this time. She states allergy to Amox when I asked her, in additon the the hydrocodone. Departure - Departure Disposition: 01 Home, Self Care Clinical Impression: Acute bronchitis Condition: Stable Record reviewed to determine appropriate education?: Yes Instructions: ED Upper Resp Infec Abx Tx Follow-Up: RICHARD GONZALES DO [Primary Care Provider] - Prescriptions: dexAMETHasone [Decadron] 4 mg PO DAILY #5 tablet Doxycycline Hyclate 100 mg PO BID 7 Days #14 cap Benzonatate [Tessalon] 100 mg PO TID PRN #20 cap PRN Reason: Cough Comments: Your rapid strep test is negative. The viral panel test is still pending though with your persistent symptoms and the description of now sore throat and the description of your sputum, I would be considering a bacterial infection as well even if it initially was viral. As such I feel you have likelihood of benefit from some antibiotics at this point. You stated you are allergic to amoxicillin so certainly not going to give that. Go with doxycycline twice daily for a week. In addition we will give a anti-inflammatory of Decadron daily for 5 more days and medication to help with your cough. Tylenol very 4 to 6 hours for pain for the next few days. I would anticipate improvement over the next few days and resolution over 3 to 5 days. Forms: PCP List Discharge Date/Time: 12/19/23 23:15
[2023-12-19 22:42] LABS: RAPID STREP SCREEN Negative (Negative)
[2023-12-19] MEDS: ACETAMINOPHEN 500 MG TABLET PO STA (23:11)
[2023-12-19] MEDS: dexAMETHasone 4 MG TABLET PO STA (23:11)
[2023-12-19] MEDS: BENZONATATE 100 MG CAPSULE PO STA (23:11)
[2023-12-19] MEDS: DOXYCYCLINE 100 MG TABLET PO STA (23:12)
[2023-12-19 23:37] LABS: B. PARAPERTUSSIS- RESP PCR PAN NOT DETECTED; B. PERTUSSIS- RESP PCR PANEL NOT DETECTED; C. PNEUMONIAE- RESP PCR PANEL NOT DETECTED; CORONAVIRUS 229E-RESP PCR NOT DETECTED; CORONAVIRUS HKU1-RESP PCR NOT DETECTED; CORONAVIRUS NL63-RESP PCR NOT DETECTED; CORONAVIRUS OC43-RESP PCR NOT DETECTED; HUMAN METAPNEUMOVIRUS NOT DETECTED; INFLUENZA A- RESP PCR PANEL NOT DETECTED; INFLUENZA B - RESP PCR PANEL NOT DETECTED; M. PNEUMONIAE- RESP PCR PANEL NOT DETECTED; PARAINFLUENZA VIRUS 1 NOT DETECTED; PARAINFLUENZA VIRUS 2 NOT DETECTED; PARAINFLUENZA VIRUS 3 NOT DETECTED; PARAINFLUENZA VIRUS 4 NOT DETECTED; RHINOVIRUS/ENTEROVIRUS NOT DETECTED; RSV- RESP PCR PANEL NOT DETECTED; SARS-CoV-2 -RESP PCR PANEL NOT DETECTED
--- NOTE | 2023-12-21 15:01 | ED Physician Documentation ---
ED Addendum - Addendum Addendum: 12/21/23 15:00 addie with pt by phone re pos cx rx keflex 500mg po qid #40 to [facility]
== END 2023-12-19 23:15 | disposition home or self-care (01) ==
LOC: ED 22:21
DX: J20.9 Acute bronchitis, unspecified (principal); Z88.0 Allergy status to penicillin; Z88.5 Allergy status to narcotic agent
CPT/HCPCS: 87070; 87077; 87430; 87633; 99283; 99284; A9270; J8540